=== PATIENT | female | born 1990 | race African-American/Black ===

== ENCOUNTER 2017-08-02 02:19 | Inpatient (IN) ==
[2017-08-02 04:00] LABS: Apearance,Urine CLEAR (Clear); Bilirubin,Urine Negative (Negative); Blood, Urine Negative (Negative); Glucose,Urine (UA) Negative (Negative); Ketones,Urine Negative (Negative); Nitrite,Urine Negative (Negative); Protein,Urine Negative; RBC,Urine <1 /HPF (0-4); Squamous Epithelial Cell,Urine Occasional /HPF (0-10); Urine Color Yellow (Yellow); Urine Specific Gravity 1.009 (1.001-1.035); Urine Urobilinogen < 2.0 EU/DL (0.2-1.0); WBC,Urine 2 /HPF (0-6)
[2017-08-02 04:20] LABS: Barbiturates Screen,Urine Negative (Negative); Benzodiazepines Screen,Urine Negative (Negative); Cannabinoid Screen,Urine Negative (Negative); Opiate Screen,Urine Negative (Negative); Phencyclidine Screen,Urine Negative (Negative)
[2017-08-02 07:45] LABS: Basophils % 0.2 % (0.0-0.8); Eosinophils # 0.1 10*3/uL (0.0-0.87); Eosinophils % 1.3 % (0.00-10.9); Hematocrit 31.8 VOL% (35.7-47.0); Hemoglobin 11.3 GM/DL (12.0-16.0); Immature Granulocytes % 0.4 %; Immature Granulocytes Absolute 0.03 #; Lymphocytes # 1.6 10*3/uL (1.4-4.0); Lymphocytes % 19.2 % (21.3-54.2); Mean Corpuscular HGB Conc 35.5 GM/DL (32-36); Mean Corpuscular Hemoglobin 32 PG (27-34); Mean Corpuscular Volume 89.1 FL (87-102); Mean Platelet Volume 13.1 FL (9.6-12.0); Monocytes # 0.7 10*3/uL (0.11-0.8); Monocytes % 8.6 % (1.7-12.7); Neutrophils % 70.3 % (38.7-73.9); Platelet Count 135 T/CUMM (130-400); Red Blood Count 3.57 MC/CUMM (3.8-5.5); White Blood Count 8.5 T/CUMM (4-12)
[2017-08-02 07:57] LABS: INR 0.9; PT Patient Result 9.6 SECS; Partial Thromboplastin Time 25.6 SECS (0-40)
[2017-08-02 08:22] LABS: Alanine Aminotransferase 16 U/L (13-56); Albumin 2.6 G/DL (3.4-5.0); Alkaline Phosphatase 101 U/L (45-117); Aspartate Amino Transferase 18 U/L (0-37); Bilirubin,Direct < 0.100 MG/DL (0.0-0.20); Blood Urea Nitrogen 3 MG/DL (7-18); Calcium 8.2 MG/DL (8.5-10.1); Glucose 71 MG/DL (74-106); Osmolality,Calculated 271.5 MOS/KG (273-304); Potassium 3.7 MMOL/L (3.5-5.1); Sodium 139 MMOL/L (136-145); Uric Acid 4.6 MG/DL (2.6-6.0)
[2017-08-02] MEDS ORDERED: LABETALOL 100 MG TABLET PO SCH (09:00)
[2017-08-02] MEDS ORDERED: ePHEDrine 50 MG/ML AMP IV PRN (09:30)
[2017-08-02] MEDS ORDERED: LACTATED RINGERS 1,000 ML IV ONE (09:33)
[2017-08-02] MEDS ORDERED: AMPICILLIN INJ 2,000 MG in SODIUM CHLORIDE 0.9% 50 ML IV ONE ×2 (09:52→10:00)
[2017-08-02] MEDS ORDERED: OXYTOCIN/LR 20 UNIT/1,000 ML BAG IV ONE ×2 (09:59→17:18)
[2017-08-02] MEDS ORDERED: LABETALOL 100 MG TABLET PO ONE (09:59)
[2017-08-02] MEDS ORDERED: hydrOXYzine HCL 25 MG/1 ML VIAL IM PRN (10:00)
[2017-08-02] MEDS ORDERED: fentaNYL 2 MCG/ROPIV 0.2% EPID 150 ML EPIDURAL SCH (10:00)
[2017-08-02] MEDS ORDERED: OXYTOCIN/LR 20 UNIT/1,000 ML BAG IV SCH (10:00)
[2017-08-02] MEDS ORDERED: LACTATED RINGERS 250 ML IV PRN (10:00)
[2017-08-02] MEDS ORDERED: diphenhydrAMINE 50 MG/1 ML VIAL IV PRN ×2 (10:00)
[2017-08-02] MEDS ORDERED: ONDANSETRON 4 MG/2 ML VIAL IV PRN (10:00)
[2017-08-02] MEDS ORDERED: CITRIC ACID/SODIUM CITRATE 30 ML UDCUP PO ONE (10:00)
[2017-08-02] MEDS ORDERED: FAMOTIDINE 20 MG/2 ML VIAL IV ONE (10:00)
[2017-08-02] MEDS ORDERED: PROMETHAZINE 25 MG/1 ML VIAL IM ONE (10:00)
[2017-08-02] MEDS: LACTATED RINGERS 1,000 ML IV SCH (13:24)
[2017-08-02] MEDS ORDERED: MORPHINE 10 MG/10 ML VIAL ONE (15:30)
[2017-08-02 15:50] LABS: Cord Arterial Blood HCO3 22.4 MMOL/L
[2017-08-02 15:55] LABS: Cord Venous Blood HCO3 17.1 MMOL/L; Cord Venous Blood PCO2 56.3 MMHG; Cord Venous Blood PO2 19.5
[2017-08-02 15:56] LABS: Apearance,Urine CLEAR (Clear); Bilirubin,Urine Negative (Negative); Blood, Urine Negative (Negative); Glucose,Urine (UA) Negative (Negative); Ketones,Urine Negative (Negative); Mucus,Urine Occasional /LPF (Occasional); Nitrite,Urine Negative (Negative); Protein,Urine Negative; RBC,Urine 1 /HPF (0-4); Squamous Epithelial Cell,Urine Occasional /HPF (0-10); Urine Color Yellow (Yellow); Urine Specific Gravity 1.019 (1.001-1.035); Urine Urobilinogen < 2.0 EU/DL (0.2-1.0); WBC,Urine 3 /HPF (0-6)
[2017-08-02] MEDS: HYDROmorphone 2 MG/1 ML VIAL IV PRN ×2 (16:50→20:14)
[2017-08-02] MEDS: AMPICILLIN INJ 1,000 MG in SODIUM CHLORIDE 0.9% 50 ML IV SCH ×2 (16:58→20:20)
[2017-08-02] MEDS ORDERED: SIMETHICONE CHEW 80 MG TABLET PO PRN (22:08)
[2017-08-02] MEDS ORDERED: RHO(D) IMMUNE GLOBULIN 300 MCG SYRINGE IM ONE (22:08)
[2017-08-02] MEDS: ceFAZolin 1,000 MG in SYRINGE 1 EACH IV SCH (23:12)
[2017-08-02] MEDS: DOCUSATE SODIUM 100 MG CAPSULE PO SCH (23:13)
[2017-08-02 23:31] LABS: Basophils % 0.2 % (0.0-0.8); Eosinophils % 0.1 % (0.00-10.9); Hemoglobin 9.9 GM/DL (12.0-16.0); Immature Granulocytes % 0.5 %; Immature Granulocytes Absolute 0.06 #; Lymphocytes # 1.1 10*3/uL (1.4-4.0); Lymphocytes % 8.4 % (21.3-54.2); Mean Corpuscular HGB Conc 35.4 GM/DL (32-36); Mean Corpuscular Hemoglobin 32 PG (27-34); Mean Corpuscular Volume 91.2 FL (87-102); Mean Platelet Volume 13.2 FL (9.6-12.0); Monocytes # 0.8 10*3/uL (0.11-0.8); Monocytes % 5.9 % (1.7-12.7); Neutrophils # 10.9 10*3/uL (1.4-7.4); Neutrophils % 84.9 % (38.7-73.9); Platelet Count 122 T/CUMM (130-400); Red Blood Count 3.07 MC/CUMM (3.8-5.5); Red Cell Distribution Width 14.3 % (9.3-17.3); White Blood Count 12.8 T/CUMM (4-12)
[2017-08-03] MEDS: LACTATED RINGERS 1,000 ML IV SCH (00:41)
[2017-08-03] MEDS: HYDROmorphone 2 MG/1 ML VIAL IV PRN (04:04)
[2017-08-03 04:56] LABS: Basophils % 0.2 % (0.0-0.8); Eosinophils % 0.2 % (0.00-10.9); Hematocrit 26.1 VOL% (35.7-47.0); Hemoglobin 9.1 GM/DL (12.0-16.0); Immature Granulocytes % 0.5 %; Immature Granulocytes Absolute 0.05 #; Lymphocytes # 1.4 10*3/uL (1.4-4.0); Lymphocytes % 12.9 % (21.3-54.2); Mean Corpuscular HGB Conc 34.9 GM/DL (32-36); Mean Corpuscular Hemoglobin 31 PG (27-34); Mean Platelet Volume 13.7 FL (9.6-12.0); Monocytes # 0.9 10*3/uL (0.11-0.8); Monocytes % 8.7 % (1.7-12.7); Neutrophils # 8.2 10*3/uL (1.4-7.4); Neutrophils % 77.5 % (38.7-73.9); Platelet Count 121 T/CUMM (130-400); White Blood Count 10.5 T/CUMM (4-12)
[2017-08-03] MEDS: IBUPROFEN 800 MG TABLET PO SCH ×2 (06:21→14:30)
[2017-08-03] MEDS: ceFAZolin 1,000 MG in SYRINGE 1 EACH IV SCH (06:22)
[2017-08-03] MEDS: MULTIVITAMIN (PRENATAL) TABLET PO SCH (09:51)
[2017-08-03] MEDS: DOCUSATE SODIUM 100 MG CAPSULE PO SCH ×2 (09:51→22:05)
[2017-08-03] MEDS: MAGNESIUM HYDROXIDE SUSP 30 ML UDCUP PO PRN (18:21)
[2017-08-04] MEDS: IBUPROFEN 800 MG TABLET PO SCH ×3 (00:16→18:13)
[2017-08-04] MEDS: MULTIVITAMIN (PRENATAL) TABLET PO SCH (08:40)
[2017-08-04] MEDS: DOCUSATE SODIUM 100 MG CAPSULE PO SCH ×2 (08:40→22:25)
[2017-08-04] MEDS: MAGNESIUM HYDROXIDE SUSP 30 ML UDCUP PO PRN (22:25)
[2017-08-05] MEDS: IBUPROFEN 800 MG TABLET PO SCH ×2 (06:50→10:04)
[2017-08-05 08:32] VITALS: BP 135/84
[2017-08-05] MEDS ORDERED: BISACODYL 10 MG SUPP RECTAL PRN (08:37)
[2017-08-05] MEDS: DOCUSATE SODIUM 100 MG CAPSULE PO SCH (10:03)
[2017-08-05] MEDS: MULTIVITAMIN (PRENATAL) TABLET PO SCH (10:04)
[2017-08-05] MEDS ORDERED: DIPH/TET/ACEL PERT BOOSTER VACCINE 0.5 ML VIAL IM ONE (10:55)
== END 2017-08-05 12:05 | disposition home or self-care (01) | DRG 766 ==
LOC: N.LDOUT 02:19 → N.LD 02:21 → EDSTATUS 10:18 → N.OB 21:58
PROVIDERS: ADMIT Obstetrics & Gynecology; ATTEND Obstetrics & Gynecology
PROC: LDCSECT (ICD-10-PCS; 2017-08-02 14:20)

== ENCOUNTER 2021-04-25 16:30 | Observation (INO) ==
[2021-04-25 20:03] LABS: Basophils # 0.1 10*3/uL (0.0-0.2); Basophils % 0.5 % (0.0-0.8); Eosinophils % 0.3 % (0.00-10.9); Hematocrit 40.8 VOL% (35.7-47.0); Hemoglobin 13.3 GM/DL (12.0-16.0); Immature Granulocytes % 0.2 %; Immature Granulocytes Absolute 0.03 #; Lymphocytes # 3.1 10*3/uL (1.4-4.0); Lymphocytes % 25.4 % (21.3-54.2); Mean Corpuscular HGB Conc 32.6 GM/DL (32-36); Mean Corpuscular Volume 92.7 FL (87-102); Mean Platelet Volume 11.1 FL (9.6-12.0); Monocytes % 5.9 % (1.7-12.7); Neutrophils % 67.7 % (38.7-73.9); Platelet Count 207 T/CUMM (130-400); Red Cell Distribution Width 13.3 % (9.3-17.3); White Blood Count 12.2 T/CUMM (4-12)
[2021-04-25] MEDS ORDERED: MEPERIDINE 25 MG/1 ML VIAL IV STA (20:47)
[2021-04-25] MEDS ORDERED: ONDANSETRON 4 MG/2 ML VIAL IV STA (21:16)
[2021-04-25] MEDS ORDERED: OXYTOCIN/D5LR 20 UNIT/1,000 ML PREMIX IV ONE (21:36)
[2021-04-25] MEDS ORDERED: BISACODYL 10 MG SUPP RECTAL PRN (22:11)
[2021-04-25] MEDS ORDERED: MAGNESIUM HYDROXIDE SUSP 30 ML UDCUP PO PRN (22:11)
[2021-04-25] MEDS ORDERED: LACTATED RINGERS 1,000 ML IV SCH (22:11)
[2021-04-25] MEDS ORDERED: ONDANSETRON 4 MG/2 ML VIAL IV PRN (22:11)
[2021-04-25 22:14] LABS: Alanine Aminotransferase 20 U/L (13-56); Albumin 4.2 G/DL (3.4-5.0); Alkaline Phosphatase 37 U/L (45-117); Aspartate Amino Transferase 14 U/L (0-37); Bilirubin,Total < 0.39 MG/DL (0.20-1.00); Blood Urea Nitrogen 7 MG/DL (7-18); Calcium 9.2 MG/DL (8.5-10.1); Carbon Dioxide 24 MMOL/L (21-32); Estimated Glom Filtration Rate 141 ML/MIN; Glucose 96 MG/DL (74-106); Osmolality,Calculated 278.3 MOS/KG (273-304); Potassium 3.9 MMOL/L (3.5-5.1); Sodium 141 MMOL/L (136-145); Total Protein 8.2 G/DL (6.4-8.2)
[2021-04-25] MEDS ORDERED: OXYTOCIN/LR 20 UNIT/1,000 ML BAG IV ONE (22:23)
[2021-04-26] MEDS ORDERED: IBUPROFEN 800 MG TABLET PO PRN (02:24)
[2021-04-26 04:33] LABS: Basophils % 0.3 % (0.0-0.8); Eosinophils # 0.1 10*3/uL (0.0-0.87); Eosinophils % 1.5 % (0.00-10.9); Hemoglobin 12.1 GM/DL (12.0-16.0); Immature Granulocytes % 0.3 %; Immature Granulocytes Absolute 0.03 #; Lymphocytes # 2.2 10*3/uL (1.4-4.0); Lymphocytes % 24.2 % (21.3-54.2); Mean Corpuscular HGB Conc 32.7 GM/DL (32-36); Mean Corpuscular Volume 92.5 FL (87-102); Mean Platelet Volume 10.9 FL (9.6-12.0); Monocytes % 6.2 % (1.7-12.7); Neutrophils % 67.5 % (38.7-73.9); Platelet Count 186 T/CUMM (130-400); Red Cell Distribution Width 13.2 % (9.3-17.3)
[2021-04-26 04:43] LABS: INR 1.1; PT Patient Result 11.7 SECS (10.5-12.0)
[2021-04-26 04:56] LABS: Albumin 3.6 G/DL (3.4-5.0); Bilirubin,Total 1.1 MG/DL (0.20-1.00); Calcium 8.6 MG/DL (8.5-10.1); Osmolality,Calculated 272.7 MOS/KG (273-304); Potassium 3.5 MMOL/L (3.5-5.1); Total Protein 6.8 G/DL (6.4-8.2)
[2021-04-26] MEDS: MORPHINE 2 MG/1 ML SYRINGE IV PRN ×2 (07:28→13:04)
[2021-04-26] MEDS ORDERED: PANTOPRAZOLE 40 MG VIAL IV SCH (09:00)
[2021-04-26] MEDS ORDERED: DOCUSATE SODIUM 100 MG CAPSULE PO SCH (09:00)
[2021-04-26 16:19] VITALS: BP 114/53
[2021-04-26] MEDS ORDERED: miSOPROStoL 200 MCG TABLET VAG ONE (17:17)
== END 2021-04-26 17:50 | disposition home or self-care (01) ==
LOC: N.ED 16:30 → N.EDINP 16:30 → N.OB 22:06
PROVIDERS: ADMIT Obstetrics & Gynecology; ATTEND Obstetrics & Gynecology